=== PATIENT | female | born 1970 | race African-American/Black ===

== ENCOUNTER 2019-10-07 00:22 | Emergency (ER) | payer BC ==
[~2019-10-07] VITALS: Ht 162.6 cm; Wt 86.2 kg
[~2019-10-07 00:22] MED LIST: PEPCID20 MG PO
[2019-10-07] MEDS ORDERED: MELOXICAM15 MG PO (00:40)
[2019-10-07] MEDS ORDERED: FLEXERIL PO (00:40)
[2019-10-07] MEDS ORDERED: NORCO 5-325 TA1 EAC1 PO (01:47)
[2019-10-07 02:00] VITALS: BP 154/100
== END 2019-10-07 02:00 | disposition home or self-care (01) ==
LOC: ER 00:22
DX: M62.838 Other muscle spasm (principal); M54.12 Radiculopathy, cervical region; M54.2 Cervicalgia; Z79.899 Other long term (current) drug therapy